=== PATIENT | male | born 1955 | race Caucasian/White ===

== ENCOUNTER 2021-07-07 08:08 | Outpatient (CLI) | payer OTHER, SELFPAY ==
--- NOTE | 2021-07-07 08:40 | XR_ITS ---
WS: [id number] LATERAL LUMBAR SPINE: 3 view. Lateral radiographs are performed in upright neutral, flexion and extension to the patient's toleranc e. HISTORY: LOW BACK PAIN COMPARISON: None available. 3 mm retrolisthesis of L1-L4 with no significant change during flexion or extension. Moderate facet j oint arthritis and narrowing at L4-5 and L5-S1. No fractures. Severe degenerative disc disease at L5- S1. Abdominal aorta is heavily calcified. There is a calcification which is rounded distal anterior to L2 vertebral body measuring 4.6 cm. This may be an aneurysm or pseudoaneurysm. XR/XR lumbar spine f/e only [id number] IMPRESSION: 1. Severe degenerative disc disease at L5-S1. 2. No lumbar spine instability. 3. 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 4. Moderate atherosclerosis aorta. 5. Large round calcification anterior to the L2 vertebral body. This does not appear to be an aortic aneurysm as seen on the MRI performed on the same day of the lumbar spine. This may be a splenic mass or splenic artery aneurysm which is calcified. Suggest follow-up CT abdomen and pelvis with contrast to further characterize this partially calcified mass.
--- NOTE | 2021-07-07 08:41 | MR_ITS ---
WS: [id number] MRI LUMBAR SPINE NONCONTRAST HISTORY: LOW BACK PAIN, pain into both legs. COMPARISON: None available. TECHNIQUE: Sagittal and axial multisequence imaging is submitted. Disc protrusion and osteophytes in the cervical spine causing at least a mild stenosis from C3-4 to C 5-6. Mild straightening of the normal lumbar lordosis. L2 and L3 retrolisthesis by 2 mm. Significant motio n artifact on the STIR sequence. There is a small amount of marrow edema in the adjacent endplates of L4 and L5. No acute fractures. Mild disc desiccation throughout the lumbar spine. Conus terminates normally at L1-2 disc level. L1-L2: Mild facet arthritis. No stenosis. L2-L3: Mild osteophytic ridging and annular disc bulging. Central disc protrusion with mild contact a nd deformity of the ventral thecal sac. Mild ligamentum flavum hypertrophy and facet arthritis. Mild bilateral foraminal stenosis and very mild central stenosis. L3-L4: Mild annular disc bulging and osteophytic ridging. Mild ligamentum flavum hypertrophy and face t arthritis. Mild bilateral foraminal narrowing. L4-L5: Moderate diffuse annular disc bulging with moderate ligamentum flavum hypertrophy and facet ar thritis. Disc and osteophyte and facet disease contributing to mild central stenosis. RIGHT facet miranda nt arthritis encroaching into the RIGHT lateral thecal sac with mild displacement of the nerve roots. Mild to moderate bilateral subarticular recess and foraminal stenosis, greatest on the RIGHT. L5-S1: Diffuse osteophytic ridging and annular disc bulging with moderate facet joint arthritis. Disc and osteophyte disease contributing to moderate central and bilateral subarticular recess and forami nal stenosis. There are small disc protrusions contacting the S1 nerve root greatest on the RIGHT and disc and osteophyte contacting the L5 nerve roots bilaterally. There is increase fluid in the facet joints. Mild ectasia abdominal aorta. MR/MR lumbar spine wo con* [id number] IMPRESSION: 1. Moderate central, bilateral subarticular recess and foraminal stenosis L5-S 1. Disc and osteophyte contacting the L5 and S1 nerve roots bilaterally. Most s ignificant disc protrusion into the RIGHT lateral recess contacting the S1 nerv e root. 2. Mild central stenosis at L4-5 with mild to moderate bilateral subarticular recess and foraminal stenosis, greatest on the RIGHT. 3. Very mild central and bilateral foraminal stenosis at L2-3.
== END 2021-07-07 08:09 | disposition home or self-care (01) ==
PROVIDERS: Visit Provider Nurse Practitioner
DX: M48.061 Spinal stenosis, lumbar region without neurogenic claudication (principal); M48.07 Spinal stenosis, lumbosacral region
CPT/HCPCS: 72120; 72148

== ENCOUNTER → 2023-05-19 09:19 | Outpatient (BNVA) | payer OTHER, SELFPAY | PROVIDERS: PCP Family Medicine; Visit Provider Internal Medicine Cardiovascular Disease | DX: R06.02 Shortness of breath (principal); R07.89 Other chest pain; I25.10 Atherosclerotic heart disease of native coronary artery without angina pectoris; I10 Essential (primary) hypertension; E11.9 Type 2 diabetes mellitus without complications; E78.5 Hyperlipidemia, unspecified; F17.200 Nicotine dependence, unspecified, uncomplicated; R00.1 Bradycardia, unspecified | CPT/HCPCS: 93005; 99204 ==

== ENCOUNTER 2023-05-26 09:22 | Outpatient (CLI) | payer OTHER, SELFPAY ==
--- NOTE | 2023-05-26 10:00 | USCV_ITS ---
Corey Uriarte Age: 67 Gender: M : 1955 Exam Date: 05/26/2023 09:40 Ordering Phys: Sarita Dang MD ([email or web address]) Technologist: Blu Baker [place] [facility] [place]: [place] Pain RIGHT LEFT Brachial 172.00 mmHg Brachial 157.00 mmHg Pressure (mmHg) Waveform Pressure (mmHg) Waveform 142.00 [employer] MECH[employer]IC 154.00 0.00 DPA 162.00 0.83 Ankle/Brachial Index 0.94 0.62 Post-Exercise Ankle Brachial Index 0.72 126.00 Pre-Exercise Toe Pressure 135.00 0.73 Pre-Exercise Toe/Brachial Index 0.78 FINDINGS Resting NICOLE of 0.83 on the right and 0.94 on the left Post exercise NICOLE of 0.62 on the right and 0.72 on the left Resting TBI of 0.73 on the right and 0.72 on the left CONCLUSIONS 1. Features of moderate peripheral artery disease bilaterally, right worse than the left. 2. Possible occlusion of dorsalis pedis artery on the right side. No similar previous studies are available for comparison Dr Jessica Albert MD [facility] (Electronically Signed) Final Date: 27 May 2023 09:42 S
== END 2023-05-26 09:23 | disposition home or self-care (01) ==
LOC: RAD 09:25
PROVIDERS: PCP Family Medicine; Visit Provider Internal Medicine Cardiovascular Disease
DX: I73.9 Peripheral vascular disease, unspecified (principal)
CPT/HCPCS: 93922

== ENCOUNTER → 2023-06-08 10:20 | Outpatient (BNVA) | payer SELFPAY | PROVIDERS: PCP Family Medicine; Visit Provider Specialist | DX: M25.561 Pain in right knee (principal) | CPT/HCPCS: 73560; 73565; 99204 ==

== ENCOUNTER 2023-07-13 09:09 | Outpatient (CLI) | payer OTHER, SELFPAY ==
--- NOTE | 2023-07-13 | ECG_ITS ---
[facility] Test Date: 2023-07-13 Pat Name: Corey Uriarte Department: Room: Gender: Male Key Entry Operator: : 1955 Requested By: Sarita Dang Order Number: [id number] Romero MD: Sarita Dang M.D. Interpretive Statements NAME OF STUDY: LEXISCAN SESTAMIBI STRESS TEST INDICATION: Chest Pain; Shortness of Breath PROCEDURE: At the baseline, the blood pressure was 152/95 mmHg, oxygen saturation 96% with a heart rate of 63 beats per min. The electrocardiogram showed as bradycardia, normal axis. Poor anterior R wave progression. normal ST and T's. ??? The Lexiscan was infused over a period of 20 seconds. A total of 0.4 milligrams of Lexiscan was infused. The stress phase was continued for a total of 5 minutes. Heart rate at the end of the stress phase was 74 bpm, oxygen saturation 97% with a blood pressure 169/90 mmHg. The EKG at the peak infusion revealed no significant ST-T wave changes. ??? Sestamibi was injected 20 seconds after the Lexiscan infusion. ??? Blood pressure at the end of the recovery phase was 170/88 mmHg, oxygen saturation 97% with a heart rate of 73 beats per minute. ??? CONCLUSION: 1. No significant EKG changes with the LexiScan infusion. 2. No LexiScan induced chest pain or cardiac arrhythmia. 3. Normal blood pressure and heart rate response. 4. Sestamibi/sestamibi perfusion scan pending; see separate report. Electronically Signed On 07-21-2023 15:59:41 CDT by Sarita Dang M.D. [email or web address]
[2023-07-13 09:46] VITALS: BMI 39.1
--- NOTE | 2023-07-13 09:46 | NMCV_ITS ---
NM aren perf SPECT r/s* [id number] Corey Uriarte Age: 68 Gender: M : 1955 Exam Date: 07/13/2023 10:32 Ordering Phys: Sarita Dang MD ([email or web address]) Technologist: KATE Grimes Exam Location: [facility] Indications: SHORTNESS OF BREATH, CHEST PAIN STRESS TEST Please see separate stress test report in [facility] for full findings IMAGE PROTOCOL Rest/Stress 1 Lexiscan Day Radiopharmaceutical Dose (mCi) Administration Site Administered by Rest: Tc-99m 10.9 IV KATE Grimes Sestamibi Stress:Tc-99m 33.0 IV KATE Grimes Sestamibi Rest: 13-Jul-2023 60 Discovery 630 Stress: 13-Jul-2023 30 Discovery 630 0.4mg Lexiscan. Images obtained in supine and prone position. SPECT RESULTS Technical Quality: Excellent Raw Data Analysis: Normal Image Corrections: No attenuation or motion correction applied Summed Stress Score: 0 Summed Rest Score: 0 Summed Difference Score: 0 PERFUSION FINDINGS SPECT images demonstrate homogeneous tracer distribution throughout the myocardium. FUNCTIONAL RESULTS (calculated via Gated SPECT) Stress Image LV EF (%): 73 Stress EDV (mL):93 TID: 1 Stress ESV (mL):25 FUNCTIONAL FINDINGS: The left ventricle is normal in size. Transient Ischemia Dilatation of 1. The left ventricular ejection fraction is normal with a value of 73%. There is normal left ventricular wall thickening. Normal end-diastolic and end-systolic volumes. IMPRESSIONS 1. Myocardial perfusion imaging is normal. 2. Overall left ventricular systolic function is normal without regional wall motion abnormalities, LVEF=73%. 3. EKG Portion of the study will be reported separately. 4. Scan indicates low risk for cardiac events. Sarita Dang MD (Electronically Signed) Final Date: 17 July 2023 14:52 S
[2023-07-13] MEDS: regadenoson 0.4 Mg/5 ml Syringe IVP (11:06)
[2023-07-13 11:21] VITALS: BP 170/88; PULSE 74
== END 2023-07-13 09:10 | disposition home or self-care (01) ==
PROVIDERS: PCP Family Medicine; Visit Provider Internal Medicine Cardiovascular Disease
DX: R06.02 Shortness of breath (principal); R07.9 Chest pain, unspecified
CPT/HCPCS: 36415; 78452; 93017; 96374; A9500; J2785

== ENCOUNTER 2023-10-24 12:39 | Outpatient (CLI) | payer OTHER, SELFPAY ==
--- NOTE | 2023-10-24 13:45 | MR_ITS ---
WS: [id number] MRI RIGHT KNEE HISTORY: right knee pain COMPARISON: 06/08/2023 Anterior cruciate ligament: Intact. Posterior cruciate ligament: Intact. Medial collateral ligament: Small amount of fluid surrounding the MCL but no tear. Partially extruded medial meniscus. Posterior lateral corner structures: Intact. Medial menisci: Horizontal tear posterior horn medial meniscus extends to the inferior articular surf jossy and also through the periphery towards the meniscal root. Lateral meniscus: Intact. Normal signal, size and shape. Extensor mechanism: Distal quadriceps tendon and patellar tendons are intact. Fluid and soft tissue: Moderate suprapatellar joint effusion. No Ulrich's cyst. Osseous and articular structures: Patellofemoral compartment: Moderate loss of cartilage involving the medial patellar facet. No marrow edema or displacement of the patella. Medial compartment: Mild narrowing of the medial compartment. Mild diffuse chondromalacia. No fractur e or marrow edema. Lateral compartment: Minimal thinning and fissuring of the cartilage. No marrow edema. IMPRESSION: 1. Horizontal tear posterior horn medial meniscus. 2. Moderate suprapatellar joint effusion with a small amount of edema. 3. Moderate chondromalacia medial patellar facet. 4. Partially extruded medial meniscus. 5. Mild soft tissue edema surrounding the knee.
== END 2023-10-24 12:40 | disposition home or self-care (01) ==
LOC: RAD 12:40
PROVIDERS: PCP Family Medicine; Visit Provider Specialist
DX: S83.241A Other tear of medial meniscus, current injury, right knee, initial encounter (principal); X58.XXXA Exposure to other specified factors, initial encounter; M25.461 Effusion, right knee; M22.41 Chondromalacia patellae, right knee
CPT/HCPCS: 73721

== ENCOUNTER → 2024-04-19 13:45 | Outpatient (BNVA) | payer OTHER, SELFPAY | PROVIDERS: PCP Family Medicine; Visit Provider Podiatrist Foot & Ankle Surgery | DX: L60.3 Nail dystrophy (principal); G62.9 Polyneuropathy, unspecified; I73.9 Peripheral vascular disease, unspecified; E11.42 Type 2 diabetes mellitus with diabetic polyneuropathy; Z79.4 Long term (current) use of insulin | CPT/HCPCS: 11721; 99203 ==

== ENCOUNTER → 2024-06-28 12:45 | Outpatient (BNVA) | payer OTHER, SELFPAY | PROVIDERS: PCP Family Medicine; Visit Provider Podiatrist Foot & Ankle Surgery | DX: L60.3 Nail dystrophy (principal); G62.9 Polyneuropathy, unspecified; I73.9 Peripheral vascular disease, unspecified; M20.21 Hallux rigidus, right foot; M20.22 Hallux rigidus, left foot; E11.42 Type 2 diabetes mellitus with diabetic polyneuropathy; Z79.4 Long term (current) use of insulin | CPT/HCPCS: 11721; 99213 ==

== ENCOUNTER → 2024-08-30 13:44 | Outpatient (BNVA) | payer OTHER, SELFPAY | PROVIDERS: PCP Family Medicine; Visit Provider Internal Medicine Cardiovascular Disease | DX: R00.1 Bradycardia, unspecified (principal); R07.9 Chest pain, unspecified; R94.31 Abnormal electrocardiogram [ECG] [EKG] | CPT/HCPCS: 93005 ==

== ENCOUNTER → 2024-11-09 12:25 | Outpatient (BNVA) | payer OTHER, SELFPAY | PROVIDERS: PCP Family Medicine; Visit Provider Podiatrist Foot & Ankle Surgery | DX: L60.3 Nail dystrophy (principal); G62.9 Polyneuropathy, unspecified; I73.9 Peripheral vascular disease, unspecified; M20.21 Hallux rigidus, right foot; M20.22 Hallux rigidus, left foot; E11.42 Type 2 diabetes mellitus with diabetic polyneuropathy; Z79.4 Long term (current) use of insulin | CPT/HCPCS: 11721 ==

== ENCOUNTER 2025-01-14 09:43 | Outpatient (CLI) | payer OTHER, SELFPAY ==
[2025-01-14 10:07] LABS: Basophils # 0.1 10^3/uL (0.0-0.1); Eosinophils # 0.4 10^3/uL (0.0-0.8); Eosinophils % 2.6 %; Hematocrit 49.5 % (37-53); Lymphocytes # 3.6 10^3/uL (0.8-4.8); Lymphocytes % 27.1 %; Mean Corpuscular HGB Conc 33.5 g/dL (30-55); Mean Corpuscular Hemoglobin 29.7 pg (27-33); Mean Corpuscular Volume 88.7 fl (82-101); Mean Platelet Volume 9.3 fL (7.4-10.4); Monocytes # 0.8 10^3/uL (0.2-0.9); Monocytes % 5.8 %; Neutrophils # 8.38 10^3/uL (1.8-7.7); Neutrophils % 62.9 %; Nucleated Red Blood Cells % 0 %; Platelet Count 215 10^3/cmm (157-399); Red Blood Count 5.58 10^6/uL (3.85-5.65); Red Cell Distribution Width 13.3 % (12.1-15.1); White Blood Count 13.34 10^3/uL (3.29-11.43)
[2025-01-14 10:26] LABS: Calcium 9.1 mg/dL (8.5-10.5)
[2025-01-14 10:27] LABS: Albumin Level 4.1 g/dL (3.5-5.2); Blood Urea Nitrogen 19 mg/dL (8-23); Calcium 9.1 mg/dL (8.5-10.5); Carbon Dioxide 25 mmol/L (22-29); Chloride 100 mmol/L (98-107); Glomerular Filtration Rate 40.2 mL/min (90-130); Glucose 116 mg/dL (65-115); Phosphorus 3.8 mg/dL (2.5-4.5); Sodium 137 mmol/L (136-145)
[2025-01-14 10:34] LABS: Anion Gap 16.5 (5-19); Potassium 4.5 mmol/L (3.5-5.1)
[2025-01-14 10:37] LABS: Creatinine Urine, Random 84 mg/dL (39-259)
[2025-01-14 10:44] LABS: 25 Hydroxy Vitamin D 41 ng/mL (30-100)
[2025-01-14 10:53] LABS: Microalbum Creatinine Ratio Ur 1929 mg/dL (0-20); Microalbumin Random Urine 162 ug/dL (0-20)
== END 2025-01-14 09:44 | disposition home or self-care (01) ==
LOC: LAB 09:45
PROVIDERS: PCP Family Medicine; Visit Provider Registered Nurse
DX: N18.31 Chronic kidney disease, stage 3a (principal); E55.9 Vitamin D deficiency, unspecified
CPT/HCPCS: 36415; 80069; 82044; 82306; 82310; 83970; 85025

== ENCOUNTER → 2025-02-04 14:12 | Outpatient (BNVA) | payer OTHER, SELFPAY | PROVIDERS: PCP Family Medicine; Visit Provider Podiatrist Foot & Ankle Surgery | DX: L60.3 Nail dystrophy (principal); G62.9 Polyneuropathy, unspecified; I73.9 Peripheral vascular disease, unspecified; M20.21 Hallux rigidus, right foot; M20.22 Hallux rigidus, left foot; E11.42 Type 2 diabetes mellitus with diabetic polyneuropathy; Z79.4 Long term (current) use of insulin; M25.80 Other specified joint disorders, unspecified joint | CPT/HCPCS: 99213 ==

== ENCOUNTER 2025-03-12 10:07 | Outpatient (CLI) | payer OTHER, SELFPAY ==
[2025-03-12 10:47] LABS: Basophils # 0.1 10^3/uL (0.0-0.1); Basophils % 0.7 %; Eosinophils # 0.2 10^3/uL (0.0-0.8); Eosinophils % 2.5 %; Lymphocytes # 2.7 10^3/uL (0.8-4.8); Lymphocytes % 28.8 %; Mean Corpuscular HGB Conc 32.8 g/dL (30-55); Mean Corpuscular Hemoglobin 29.3 pg (27-33); Mean Corpuscular Volume 89.5 fl (82-101); Mean Platelet Volume 9.8 fL (7.4-10.4); Monocytes # 0.6 10^3/uL (0.2-0.9); Monocytes % 5.9 %; Neutrophils # 5.85 10^3/uL (1.8-7.7); Neutrophils % 61.7 %; Nucleated Red Blood Cells % 0 %; Platelet Count 179 10^3/cmm (157-399); Red Blood Count 5.25 10^6/uL (3.85-5.65); Red Cell Distribution Width 13.4 % (12.1-15.1)
[2025-03-12 11:09] LABS: Creatinine Urine, Random 50 mg/dL (39-259)
[2025-03-12 11:10] LABS: Anion Gap 17.5 (5-19); Blood Urea Nitrogen 24 mg/dL (8-23); Carbon Dioxide 24 mmol/L (22-29); Chloride 101 mmol/L (98-107); Glomerular Filtration Rate 43.1 mL/min (90-130); Glucose 236 mg/dL (65-115); Phosphorus 3.5 mg/dL (2.5-4.5); Potassium 4.5 mmol/L (3.5-5.1); Sodium 138 mmol/L (136-145)
[2025-03-12 11:18] LABS: Parathyroid Hormone 66.2 pg/mL (15-65)
[2025-03-12 11:22] LABS: Microalbum Creatinine Ratio Ur 1760 mg/dL (0-20); Microalbumin Random Urine 88 ug/dL (0-20)
[2025-03-12 11:26] LABS: 25 Hydroxy Vitamin D 38 ng/mL (30-100)
== END 2025-03-12 10:08 | disposition home or self-care (01) ==
LOC: LAB 10:11
PROVIDERS: PCP Family Medicine; Visit Provider Registered Nurse
DX: E55.9 Vitamin D deficiency, unspecified (principal); N25.81 Secondary hyperparathyroidism of renal origin; N18.31 Chronic kidney disease, stage 3a
CPT/HCPCS: 36415; 80069; 82044; 82306; 82310; 83970; 85025

== ENCOUNTER → 2025-04-09 13:23 | Outpatient (BNVA) | payer OTHER, SELFPAY | PROVIDERS: PCP Family Medicine; Visit Provider Podiatrist Foot & Ankle Surgery | DX: E11.42 Type 2 diabetes mellitus with diabetic polyneuropathy (principal); L60.3 Nail dystrophy; G62.9 Polyneuropathy, unspecified; I73.9 Peripheral vascular disease, unspecified; M20.21 Hallux rigidus, right foot; M20.22 Hallux rigidus, left foot; Z79.4 Long term (current) use of insulin | CPT/HCPCS: 11721 ==

== ENCOUNTER → 2025-06-11 12:45 | Outpatient (BNVA) | payer OTHER, SELFPAY | PROVIDERS: PCP Family Medicine; Visit Provider Podiatrist Foot & Ankle Surgery | DX: L60.3 Nail dystrophy (principal); G62.9 Polyneuropathy, unspecified; I73.9 Peripheral vascular disease, unspecified; M20.21 Hallux rigidus, right foot; M20.22 Hallux rigidus, left foot; E11.42 Type 2 diabetes mellitus with diabetic polyneuropathy; Z79.4 Long term (current) use of insulin | CPT/HCPCS: 11721 ==

== ENCOUNTER 2025-09-18 09:21 | Outpatient (CLI) | payer OTHER, SELFPAY ==
[2025-09-18 10:00] LABS: Hematocrit 43.8 % (37-53); Hemoglobin 14.40 g/dL (11.27-16.99); Mean Corpuscular HGB Conc 32.9 g/dL (30-55); Mean Corpuscular Hemoglobin 28.9 pg (27-33); Mean Corpuscular Volume 87.8 fl (82-101); Nucleated Red Blood Cells % 0 %; Platelet Count 177 10^3/cmm (157-399); Red Blood Count 4.99 10^6/uL (3.85-5.65); White Blood Count 9.17 10^3/uL (3.29-11.43)
[2025-09-18 10:19] LABS: Calcium 8.8 mg/dL (8.5-10.5)
[2025-09-18 10:21] LABS: Creatinine Urine, Random 48 mg/dL (39-259)
[2025-09-18 10:23] LABS: Albumin Level 4.0 g/dL (3.5-5.2); Anion Gap 18.5 (5-19); Blood Urea Nitrogen 21 mg/dL (8-23); Calcium 9.0 mg/dL (8.5-10.5); Carbon Dioxide 21 mmol/L (22-29); Chloride 98 mmol/L (98-107); Glucose 288 mg/dL (65-115); Potassium 4.5 mmol/L (3.5-5.1); Sodium 133 mmol/L (136-145)
[2025-09-18 10:34] LABS: Microalbum Creatinine Ratio Ur 1417 mg/dL (0-20)
== END 2025-09-18 09:22 | disposition home or self-care (01) ==
LOC: LAB 09:24
PROVIDERS: PCP Family Medicine; Visit Provider Registered Nurse
DX: E55.9 Vitamin D deficiency, unspecified (principal); N18.31 Chronic kidney disease, stage 3a; N25.81 Secondary hyperparathyroidism of renal origin
CPT/HCPCS: 36415; 80069; 82044; 82306; 82310; 83970; 85025

== ENCOUNTER → 2025-10-07 13:49 | Outpatient (BNVA) | payer OTHER, SELFPAY | PROVIDERS: PCP Family Medicine; Visit Provider Orthopaedic Surgery | DX: S49.92XA Unspecified injury of left shoulder and upper arm, initial encounter (principal); W19.XXXA Unspecified fall, initial encounter; Z72.0 Tobacco use; M19.012 Primary osteoarthritis, left shoulder | CPT/HCPCS: 73030; 99204 ==

== ENCOUNTER 2025-10-21 13:42 | Outpatient (CLI) | payer OTHER, SELFPAY ==
--- NOTE | 2025-10-21 14:30 | MRR_ITS ---
PROCEDURE INFORMATION: Exam: MR Left Upper Extremity Joint Without Contrast; Shoulder Exam date and time: 10/21/2025 1:59 PM Age: 70 years old Clinical indication: Injury or trauma; Fall; Blunt trauma (contusions or hematomas); Injury details: Patient fell 2 weeks ago injuring the left shoulder; Additional info: Left shoulder pain, possible torn rotator cuff TECHNIQUE: Imaging protocol: Magnetic resonance imaging of the left upper extremity without contrast. Exam focused on the shoulder. COMPARISON: CR XR shoulder LT min 2V* [id number] 10/07/2025 2:08 PM FINDINGS: Limitations: Motion artifact. Bones/joints: Alignment is notable for moderate anterior and superior subluxation of the humeral head within the glenoid fossa resulting in narrowing of the acromial humeral and coracohumeral intervals. Moderate patchy bone marrow edema is identified in the lateral aspect of the humeral head extending to the junction with the greater tuberosity. No focal cartilage defects are identified. Moderate glenohumeral joint effusion. There is evidence of edema and indistinctness of the inferior glenohumeral joint capsule anteriorly. Rotator interval: Moderate edema and mild synovial prominence in the rotator interval is identified. Glenoid labrum: Abnormal signal intensity in the labrum at the 12 o'clock position is identified consistent with a tear. There is a sub-labral foramen, a normal variant. Possible tear of the anterior inferior labrum. Supraspinatus tendon: There is a complete full-thickness supraspinatus tendon tear. Infraspinatus tendon: There is a complete full-thickness infraspinatus tendon tear. Subscapularis tendon: A complete full-thickness subscapularis tendon tear is identified. Teres minor tendon: A large full-thickness teres minor tendon tear is identified, without evidence of a complete tear. Tendon of biceps brachii: There is marked high-grade partial-thickness tearing of the biceps tendon long head slightly inferior to the region of the bicipital groove. The proximal aspect of the tendon is medially dislocated from the bicipital groove. It is best demonstrated on series 701 between images 10 in 22. Glenohumeral ligaments: There is indistinctness of the anterior band of the inferior glenohumeral ligament. Soft tissues: Moderate supraspinatus, infraspinatus, subscapularis and proximal deltoid muscle edema is identified. A mild degree of anterior and posterior subcutaneous edema is present. MR/MR shoulder LT wo con* [id number] IMPRESSION: 1. Bone marrow edema is compatible with a contusion involving the lateral humeral head at the junction with the greater tuberosity. No discrete fracture is identified. 2. Moderate anterior and superior subluxation of the humeral head relative to the glenoid, without dislocation. 3. Moderate glenohumeral joint effusion with probable partial tearing of the anterior aspect of the inferior glenohumeral joint capsule and the anterior band of inferior glenohumeral ligament. 4. Complete full-thickness tears of the supraspinatus, infraspinatus, and subscapularis tendons. 5. Large full-thickness tear of the teres minor tendon. 6. High-grade partial thickness tearing of the biceps tendon long head proximal to the bicipital groove, with medial dislocation of the proximal fibers from the bicipital groove. 7. Tear of the posterior labrum, with possible additional tearing of the anterior inferior labrum. 8. Supraspinatus, infraspinatus, subscapularis, and proximal deltoid muscle edema is present. This appearance can be associated with strain or contusion in the setting of trauma. Less likely etiologies include neuropathic changes, or myositis.
== END 2025-10-21 13:43 | disposition home or self-care (01) ==
LOC: RAD 13:43
PROVIDERS: PCP Family Medicine; Visit Provider Orthopaedic Surgery
DX: M25.512 Pain in left shoulder (principal)
CPT/HCPCS: 73221

== ENCOUNTER → 2025-10-31 13:15 | Outpatient (BNVA) | payer OTHER, SELFPAY | PROVIDERS: PCP Family Medicine; Visit Provider Orthopaedic Surgery | DX: M75.122 Complete rotator cuff tear or rupture of left shoulder, not specified as traumatic (principal); S43.492A Other sprain of left shoulder joint, initial encounter; S43.432A Superior glenoid labrum lesion of left shoulder, initial encounter; S46.212A Strain of muscle, fascia and tendon of other parts of biceps, left arm, initial encounter; X58.XXXA Exposure to other specified factors, initial encounter | CPT/HCPCS: 99213 ==

== ENCOUNTER → 2025-11-07 13:17 | Outpatient (BNVA) | payer OTHER, SELFPAY | PROVIDERS: PCP Family Medicine; Visit Provider Podiatrist Foot & Ankle Surgery | DX: E11.8 Type 2 diabetes mellitus with unspecified complications (principal); L60.3 Nail dystrophy; G62.9 Polyneuropathy, unspecified; I73.9 Peripheral vascular disease, unspecified; M20.21 Hallux rigidus, right foot; M20.22 Hallux rigidus, left foot; E11.42 Type 2 diabetes mellitus with diabetic polyneuropathy; Z79.4 Long term (current) use of insulin | CPT/HCPCS: 11056; 11721 ==